=== PATIENT | female | born 1970 | race Two or more races ===

== ENCOUNTER 2024-10-20 11:58 | Inpatient (IN) | payer OTHER ==
[~2024-10-20] VITALS: Ht 160 cm; Wt 74.8 kg
[2024-10-20 12:37] LABS: PLATELET COUNT (AUTO) 116 K/uL (150-450); RED BLOOD CELL COUNT(AUTO) 2.74 MIL/uL (4.0-5.2); RED CELL DISTRIBUTION WIDTH 19.6 % (11.5-15.0); WHITE BLOOD COUNT (AUTO) 14.2 K/uL (4.3-11.0)
[2024-10-20] MEDS: PANTOPRAZOLE 80 MG in IV NS 0.9% 100 ML IV ONE (12:45)
[2024-10-20 13:00] LABS: CALCIUM, SERUM 8.1 mg/dL (8.5-10.1); CREATININE 0.9 mg/dL (0.6-1.3); SODIUM SERUM 148 mmol/L (136-145); UREA NITROGEN, BLOOD 23 mg/dL (7-18)
[2024-10-20] MEDS: CEFTRIAXONE 1GM BAG (ER ONLY) 50 ML IV ONE (13:00)
[2024-10-20] MEDS: OCTREOTIDE 1,250 MCG in IV NS 0.9% 250 ML IV ONE (13:00)
[2024-10-20] MEDS: IV NS 0.9% 1,000 ML BAG IV ONE (13:00)
[2024-10-20] MEDS: PANTOPRAZOLE 80 MG in IV NS 0.9% 500 ML IV ONE (13:00)
[2024-10-20 13:01] LABS: SERUM AMMONIA 30 umol/L (11-32)
[2024-10-20 13:05] LABS: INR 1.85 (0.91-1.10)
[2024-10-20 13:13] LABS: LACTIC ACID 5.8 mmol/L (0.4-2.0)
[2024-10-20 13:17] LABS: ALCOHOL, BLOOD < 3 mg/dL (0-10); ASPARTATE AMINOTRANSFERASE 272 U/L (15-37); TOTAL PROTEIN, SERUM 6.2 g/dL (6.4-8.2)
[2024-10-20] MEDS ORDERED: ONDANSETRON HCL/PF 4 MG/2 ML VIAL ONE (13:19)
[2024-10-20] MEDS ORDERED: OCTREOTIDE 50 MCG/ML AMPUL ONE (13:20)
[2024-10-20] MEDS: ONDANSETRON HCL/PF - ER 4 MG/2 ML VIAL IV ONE ×2 (13:25→14:19)
[2024-10-20] MEDS: OCTREOTIDE 50 MCG/ML AMPUL IV ONE (13:25)
[2024-10-20 14:36] LABS: APPEARANCE,URINE SLIGHTLY CLOUDY (CLEAR); BLOOD, URINE NEGATIVE Ery/uL (NEGATIVE); LEUKOCYTE ESTERASE ,URINE 2+ (NEGATIVE); NITRITE, URINE NEGATIVE (NEGATIVE); UGLUCOSE NEGATIVE (NEGATIVE)
[2024-10-20 14:39] LABS: PREGNANCY TEST URINE QUAL NEGATIVE (NEGATIVE)
[2024-10-20 14:46] LABS: AMPHETAMINE, URINE POSITIVE (NEGATIVE); BARBITURATE, URINE NEGATIVE (NEGATIVE); BENZODIAZEPINE, URINE NEGATIVE (NEGATIVE); CANNABINOID, URINE NEGATIVE (NEGATIVE); COCCAINE, URINE NEGATIVE (NEGATIVE); OPIATE, URINE NEGATIVE (NEGATIVE)
[2024-10-20 14:53] LABS: ADD URINE CULTURE YES
[2024-10-20] MEDS ORDERED: PANTOPRAZOLE 80 MG in IV NS 0.9% 500 ML IV PRN (15:30)
[2024-10-20] MEDS ORDERED: Z GUARD REMEDY 4 OZ OINT TP PRN (15:30)
[2024-10-20] MEDS: IV D5/0.45 NACL 1,000 ML IV PRN (18:20)
[2024-10-20 20:00] VITALS: BP 122/54; TEMP 97.8; O2SAT 98
[2024-10-20] MEDS: PANTOPRAZOLE 80 MG in IV NS 0.9% 500 ML IV SCH (21:47)
[2024-10-20] MEDS: ONDANSETRON HCL/PF 4 MG/2 ML VIAL IVP PRN (22:48)
[2024-10-21] VITALS (9 sets, daily range): BP systolic 118–147; BP diastolic 66–90; TEMP 97.7–98.8; O2SAT 97–100
[2024-10-21] MEDS: OLANZAPINE 10 MG VIAL IM ONE (00:06)
[2024-10-21 07:23] LABS: CALCIUM, SERUM 7.7 mg/dL (8.5-10.1); CREATININE 1.1 mg/dL (0.6-1.3); PHOSPHORUS 2.3 mg/dL (2.5-4.9); SODIUM SERUM 145.0 mmol/L (136-145); UREA NITROGEN, BLOOD 22.0 mg/dL (7-18)
[2024-10-21 07:30] LABS: PLATELET COUNT (AUTO) 97 K/uL (150-450); RED BLOOD CELL COUNT(AUTO) 2.30 MIL/uL (4.0-5.2); RED CELL DISTRIBUTION WIDTH 20.4 % (11.5-15.0); WHITE BLOOD COUNT (AUTO) 11.4 K/uL (4.3-11.0)
[2024-10-21] MEDS: OLANZAPINE 10 MG VIAL IM PRN (10:25)
[2024-10-21] MEDS: OCTREOTIDE 1,250 MCG in IV NS 0.9% 247.5 ML IV SCH (12:36)
[2024-10-21] MEDS: CEFTRIAXONE 1 G in IV D5W 50 ML IV SCH (14:09)
[2024-10-21] MEDS ORDERED: MORPHINE SULFATE INJ 2 MG/ML DISP.SYRIN IV PRN (14:30)
[2024-10-21] MEDS: Sodium Phosphate 15 MMOL in IV NS 0.9% 245 ML IV ONE (16:53)
[2024-10-21 18:12] LABS: LYMPHOCYTES % (MANUAL) 18 % (16-48); MONOCYTES % (MANUAL) 2 % (0-11.0); NEUTROPHILS % (MANUAL) 80 (42-76); PLATELET ESTIMATE DECREASED
[2024-10-22 03:21] VITALS: BP 106/65; TEMP 98.2
[2024-10-22 03:36] VITALS: BP 129/80; TEMP 98.5
[2024-10-22 04:00] VITALS: BP 129/80; TEMP 98.5; O2SAT 99
[2024-10-22 04:21] VITALS: BP 115/64; TEMP 98.5
[2024-10-22 06:00] VITALS: BP 104/60; TEMP 98.4
[2024-10-22 07:58] LABS: RED BLOOD CELL COUNT(AUTO) 2.80 MIL/uL (4.0-5.2); RED CELL DISTRIBUTION WIDTH 18.4 % (11.5-15.0); WHITE BLOOD COUNT (AUTO) 5.4 K/uL (4.3-11.0)
[2024-10-22 08:12] LABS: PLATELET COUNT (AUTO) 37 K/uL (150-450)
[2024-10-22 10:29] LABS: EOSINOPHILS % (MANUAL) 8 % (0-4); LYMPHOCYTES % (MANUAL) 29 % (16-48); MONOCYTES % (MANUAL) 11 % (0-11.0); NEUTROPHILS % (MANUAL) 52 (42-76); PLATELET ESTIMATE DECREASED
[2024-10-22 16:00] VITALS: BP 115/68; TEMP 97.8; O2SAT 98
[2024-10-23] VITALS: BP 102/50; TEMP 97.8; O2SAT 98
[2024-10-23 08:00] VITALS: BP 117/60; TEMP 98.9; O2SAT 92
[2024-10-23] MEDS ORDERED: THIA100T88 PO (08:22)
[2024-10-23] MEDS ORDERED: PANT40TA2 PO (08:22)
== END 2024-10-23 12:12 | disposition home or self-care (01) ==
LOC: ER 12:01 → TELE-TD 15:43 → TELE1 16:03 → MEDSG1 10-21 11:09
PROVIDERS: ADMIT Nurse Practitioner Acute Care; ATTEND Nurse Practitioner Acute Care
PROC: 30233N1 Transfusion of Nonautologous Red Blood Cells into Peripheral Vein, Percutaneous Approach (ICD-10-PCS; principal; 2024-10-21)
PROC: 0DJ08ZZ Inspection of Upper Intestinal Tract, Via Natural or Artificial Opening Endoscopic (ICD-10-PCS; 2024-10-22)
DX: K76.6 Portal hypertension (principal); G92.8 Other toxic encephalopathy; D68.9 Coagulation defect, unspecified; R18.8 Other ascites; D63.8 Anemia in other chronic diseases classified elsewhere; E86.0 Dehydration; N39.0 Urinary tract infection, site not specified; K31.89 Other diseases of stomach and duodenum; R79.89 Other specified abnormal findings of blood chemistry; D69.6 Thrombocytopenia, unspecified; F19.10 Other psychoactive substance abuse, uncomplicated; K74.60 Unspecified cirrhosis of liver; E05.90 Thyrotoxicosis, unspecified without thyrotoxic crisis or storm; B96.89 Other specified bacterial agents as the cause of diseases classified elsewhere; F10.11 Alcohol abuse, in remission; R74.01 Elevation of levels of liver transaminase levels
CPT/HCPCS: 36415; 70450-TC; 71045-TC; 80048-TC; 80076-TC; 81001; 82140-TC; 82962-TC; 83605-TC; 83690-TC; 83735-TC; 84100-TC; 84443-TC; 84480; 84703-TC; 85025-TC; 85027-TC; 85730-TC; 86850-TC; 87040-TC; 87086-TC; 87186-TC; 97110-TC; 97112-TC; 97530-TC; 97535-TC; A4223; A9563; G0378; G0480; J0696; J2354; J2405; J2470; J2704; J3490; J7030; J7040; J7050; J7060; P9016

== ENCOUNTER 2024-11-01 02:56 | Emergency (ER) | payer OTHER ==
[~2024-11-01] VITALS: Ht 152.4 cm; Wt 74.8 kg
[~2024-11-01 02:56] MED LIST: PANT40TA2 PO; THIA100T88 PO
[2024-11-01 04:56] VITALS: BP 121/73; TEMP 98.2; O2SAT 97
== END 2024-11-01 04:56 | disposition left against medical advice (07) ==
LOC: ER 03:04
DX: K70.31 Alcoholic cirrhosis of liver with ascites (principal); R14.0 Abdominal distension (gaseous); R07.9 Chest pain, unspecified; Z79.899 Other long term (current) drug therapy
CPT/HCPCS: 36415; 71045-TC

== ENCOUNTER 2024-11-07 19:02 | Emergency (ER) | payer OTHER ==
[~2024-11-07] VITALS: Ht 162.6 cm; Wt 72.6 kg
[2024-11-07 19:49] LABS: PLATELET COUNT (AUTO) 80 K/uL (150-450); RED BLOOD CELL COUNT(AUTO) 3.11 MIL/uL (4.0-5.2); RED CELL DISTRIBUTION WIDTH 19.4 % (11.5-15.0); WHITE BLOOD COUNT (AUTO) 4.1 K/uL (4.3-11.0)
[2024-11-07 19:53] LABS: CALCIUM, SERUM 7.4 mg/dL (8.5-10.1); CREATININE 0.8 mg/dL (0.6-1.3); INR 1.66 (0.91-1.10); SODIUM SERUM 139.0 mmol/L (136-145); UREA NITROGEN, BLOOD 5.0 mg/dL (7-18)
[2024-11-07 20:05] LABS: ASPARTATE AMINOTRANSFERASE 157.0 U/L (15-37); NT-PRO BNP 49.0 pg/mL (0-125); TOTAL PROTEIN, SERUM 6.9 g/dL (6.4-8.2)
[2024-11-07] MEDS ORDERED: Calcium Gluconate 0.465 MEQ/ML VIAL IV ONE (20:34)
[2024-11-07] MEDS: Calcium Gluconate 1GM/10ML 4.65 MEQ in IV NS 0.9% 100 ML IV ONE (21:06)
[2024-11-07 21:40] VITALS: BP 126/72; TEMP 98.5; O2SAT 98
[2024-11-07 22:30] LABS: NEUTROPHILS % (MANUAL) 60 (42-76)
[2024-11-07 22:31] LABS: BASOPHILS % (MANUAL) 0 % (0.0-2.0); EOSINOPHILS % (MANUAL) 5 % (0-4); LYMPHOCYTES % (MANUAL) 28 % (16-48); MONOCYTES % (MANUAL) 7 % (0-11.0); PLATELET ESTIMATE DECREASED
== END 2024-11-07 21:42 | disposition home or self-care (01) ==
LOC: ER 19:15
DX: K70.30 Alcoholic cirrhosis of liver without ascites (principal); R06.02 Shortness of breath; Z79.899 Other long term (current) drug therapy; Z87.19 Personal history of other diseases of the digestive system
CPT/HCPCS: 49083; 99285; 96365; 71045; 85027; 85610; 85007; 36415; 80053; 83880; J0612; J7030

== ENCOUNTER 2025-01-26 11:43 | Emergency (ER) | payer OTHER ==
[~2025-01-26] VITALS: Ht 152.4 cm; Wt 68.0 kg
[2025-01-26 11:51] VITALS: TEMP 98
[2025-01-26 12:19] LABS: PLATELET COUNT (AUTO) 67 K/uL (150-450); RED BLOOD CELL COUNT(AUTO) 3.10 MIL/uL (4.0-5.2); RED CELL DISTRIBUTION WIDTH 20.4 % (11.5-15.0); WHITE BLOOD COUNT (AUTO) 3.4 K/uL (4.3-11.0)
[2025-01-26 12:24] LABS: CALCIUM, SERUM 7.3 mg/dL (8.5-10.1); CREATININE 0.6 mg/dL (0.6-1.3); SODIUM SERUM 139 mmol/L (136-145); UREA NITROGEN, BLOOD 9 mg/dL (7-18)
[2025-01-26 12:39] LABS: ASPARTATE AMINOTRANSFERASE 240 U/L (15-37); NT-PRO BNP 53 pg/mL (0-125); TOTAL PROTEIN, SERUM 7.4 g/dL (6.4-8.2)
[2025-01-26 13:18] VITALS: BP 119/69; O2SAT 98
[2025-01-26 13:35] LABS: EOSINOPHILS % (MANUAL) 5 % (0-4); LYMPHOCYTES % (MANUAL) 22 % (16-48); MONOCYTES % (MANUAL) 8 % (0-11.0); NEUTROPHILS % (MANUAL) 65 (42-76); PLATELET ESTIMATE DECREASED
== END 2025-01-26 13:18 | disposition home or self-care (01) ==
LOC: ER 11:53
DX: R06.02 Shortness of breath (principal); K74.60 Unspecified cirrhosis of liver; Z79.899 Other long term (current) drug therapy; Z20.822 Contact with and (suspected) exposure to COVID-19
CPT/HCPCS: 36415; 71045-TC; 80048-TC; 80076-TC; 83880; 84484-TC; 85027-TC